=== PATIENT | female | born 1985 | race Two or more races ===

== ENCOUNTER 2019-11-22 11:53 | Outpatient (CLI) | payer OTHER | END 2019-11-22 12:02 | disposition home or self-care (01) | LOC: RX STUDY 11:53 | DX: N73.6 Female pelvic peritoneal adhesions (postinfective) (principal) ==

== ENCOUNTER 2020-06-27 09:33 | Outpatient (CLI) | payer OTHER | END 2020-06-27 09:36 | disposition home or self-care (01) | LOC: RX STUDY 09:33 | PROVIDERS: ATTEND Obstetrics & Gynecology | DX: N80.8 Other endometriosis (principal) ==

== ENCOUNTER 2020-08-20 10:08 | Day surgery (SDC) | payer OTHER | END 2020-08-20 23:45 | disposition home or self-care (01) | LOC: CIR.AMB 10:08 | PROVIDERS: ATTEND Obstetrics & Gynecology | DX: O02.1 Missed abortion (principal); Z20.828 Contact with and (suspected) exposure to other viral communicable diseases ==

== ENCOUNTER 2022-09-07 13:02 | Outpatient (CLI) | payer OTHER | END 2022-09-07 14:04 | disposition home or self-care (01) | LOC: PRENATAL 13:02 | PROVIDERS: ATTEND Obstetrics & Gynecology Maternal & Fetal Medicine | DX: O36.80X0 Pregnancy with inconclusive fetal viability, not applicable or unspecified (principal); O34.219 Maternal care for unspecified type scar from previous cesarean delivery; O09.529 Supervision of elderly multigravida, unspecified trimester; Z3A.13 13 weeks gestation of pregnancy ==

== ENCOUNTER 2022-10-22 09:20 | Outpatient (CLI) | payer OTHER | END 2022-10-22 11:02 | disposition home or self-care (01) | LOC: PRENATAL 09:20 | PROVIDERS: ATTEND Obstetrics & Gynecology Maternal & Fetal Medicine | DX: O35.3XX0 Maternal care for (suspected) damage to fetus from viral disease in mother, not applicable or unspecified (principal); O35.9XX0 Maternal care for (suspected) fetal abnormality and damage, unspecified, not applicable or unspecified; O34.219 Maternal care for unspecified type scar from previous cesarean delivery; Z3A.20 20 weeks gestation of pregnancy ==

== ENCOUNTER 2023-01-03 03:02 | Inpatient (IN) | payer OTHER ==
[~2023-01-03] VITALS: Ht 162.6 cm; Wt 1.4 kg
[2023-01-03] MEDS ORDERED: PRENATAL TABLE1 EAC1 PO (03:20)
== END 2023-01-07 17:41 | disposition home or self-care (01) | DRG 786 ==
LOC: LDR 03:02 → OB/GYN 03:02 → O/R 01-04 21:45 → OB/GYN 01-04 23:31
PROVIDERS: ADMIT Obstetrics & Gynecology; ATTEND Obstetrics & Gynecology
PROC: 4A1HXCZ Monitoring of Products of Conception, Cardiac Rate, External Approach (ICD-10-PCS; 2023-01-03)
PROC: BY4FZZZ Ultrasonography of Third Trimester, Single Fetus (ICD-10-PCS; 2023-01-03)
PROC: BU4CZZZ Ultrasonography of Uterus and Ovaries (ICD-10-PCS; 2023-01-03)
PROC: 10D00Z1 Extraction of Products of Conception, Low, Open Approach (ICD-10-PCS; principal; 2023-01-04 21:00)
DX: O34.211 Maternal care for low transverse scar from previous cesarean delivery (principal); O60.14X0 Preterm labor third trimester with preterm delivery third trimester, not applicable or unspecified; O26.893 Other specified pregnancy related conditions, third trimester; O26.843 Uterine size-date discrepancy, third trimester; O36.8130 Decreased fetal movements, third trimester, not applicable or unspecified; R10.2 Pelvic and perineal pain; Z3A.30 30 weeks gestation of pregnancy; Z37.0 Single live birth; Z20.822 Contact with and (suspected) exposure to COVID-19